=== PATIENT | male | born 1955 | race African-American/Black ===

== ENCOUNTER 2018-05-06 22:33 | Emergency (ER) | payer SELFPAY ==
[~2018-05-06] VITALS: Ht 175.3 cm; Wt 84.1 kg
[2018-05-06 23:39] LABS: GLUCOSE,POINT OF CARE 138 MG/DL (70-110)
[2018-05-06] MEDS ORDERED: ATOR10TA84 PO (23:40)
[2018-05-06] MEDS ORDERED: METF-445 PO (23:40)
[2018-05-06] MEDS ORDERED: LISI-662 PO (23:40)
[2018-05-06 23:44] LABS: BASOPHILS % (AUTO) 0.9 % (0.0-2.0); EOSINOPHILS % (AUTO) 3.1 % (1.0-6.0); HEMATOCRIT 42.1 % (41-53); LYMPHOCYTES % (AUTO) 21.9 % (22.0-44.0); MEAN CORPUSCULAR HGB CONC 30.9 G/dL (31.0-37.0); MEAN CORPUSCULAR VOLUME 68 fL (80-100); MONOCYTES # (AUTO) 0.4 K/uL (0.1-1.0); MONOCYTES % (AUTO) 8.4 % (2.0-9.0); NEUTROPHILS # (AUTO) 3.1 K/uL (1.8-7.7); NEUTROPHILS % (AUTO) 65.7 % (40.0-70.0); PLATELET COUNT (AUTO) 236 K/uL (150-450); RED BLOOD CELL COUNT(AUTO) 6.17 MIL/uL (4.50-5.90); RED CELL DISTRIBUTION WIDTH 17.8 % (11.5-14.5)
[2018-05-07 00:05] LABS: ANION GAP 14 mmol/L (8-16); CALCIUM, TOTAL 8.9 mg/dL (8.8-10.5); CARBON DIOXIDE 21 mmol/L (22-29); CHLORIDE 104 mmol/L (98-107); CREATININE 1.11 mg/dL (0.60-1.30); GLOMERULAR FILTR. RATE CALC > 60 mL/min (>60); GLUCOSE,RANDOM 134 mg/dL (70-110); POTASSIUM 3.8 mmol/L (3.5-5.1); SODIUM SERUM 139 mmol/L (136-145); UREA NITROGEN, BLOOD 18 mg/dL (7-18)
[2018-05-07 00:19] LABS: B-TYPE NATRIURETIC PEPTIDE 78 pg/mL (0-100)
[2018-05-07 00:29] LABS: ALANINE AMINOTRANSFERASE 10 U/L (12-78); ALBUMIN 3.7 g/dL (3.4-5.0); ALKALINE PHOSPHATASE 72 U/L (46-116); ASPARTATE AMINOTRANSFERASE 16 U/L (15-37); BILIRUBIN,TOTAL 0.3 mg/dL (0.1-1.0); CREATINE KINASE, TOTAL ONLY 155 U/L (39-308); LIPASE 200 U/L (73-393); TOTAL PROTEIN, SERUM 8.1 g/dL (6.4-8.2)
[2018-05-07 01:04] LABS: APPEARANCE,URINE CLEAR (CLEAR); BILIRUBIN,URINE NEGATIVE (NEGATIVE); GLUCOSE, URINE (UA) >=1000 mg/dL (NEGATIVE); KETONES,URINE NEGATIVE (NEGATIVE); LEUKOCYTE ESTERASE ,URINE NEGATIVE (NEGATIVE); NITRATE,URINE NEGATIVE (NEGATIVE); OCCULT BLOOD,URINE NEGATIVE (NEGATIVE); PH,URINE 5.5 (5.0-8.0); PROTEIN,URINE NEGATIVE (NEGATIVE); UROBILINOGEN,URINE 0.2 mg/dL (<=1.0)
[2018-05-07] MEDS ORDERED: KETOROLAC TROMETHAMINE 30 MG/ML VIAL IM ONE (01:15)
[2018-05-07 01:30] LABS: BACTERIA,URINE None Seen /HPF (None Seen); RBC,URINE None Seen /HPF (0-2); SQUAMOUS EPITHELIAL CELL,UR None Seen /LPF (None Seen); WBC,URINE None Seen /HPF (0-5)
[2018-05-07 03:00] VITALS: BP 135/81
== END 2018-05-07 03:33 | disposition home or self-care (01) ==
LOC: EMS 22:35
DX: S46.212A Strain of muscle, fascia and tendon of other parts of biceps, left arm, initial encounter (principal); R07.89 Other chest pain; R06.02 Shortness of breath; E11.9 Type 2 diabetes mellitus without complications; E78.00 Pure hypercholesterolemia, unspecified; I10 Essential (primary) hypertension; Z79.84 Long term (current) use of oral hypoglycemic drugs; Z79.899 Other long term (current) drug therapy; X58.XXXA Exposure to other specified factors, initial encounter; Y93.89 Activity, other specified; Y92.89 Other specified places as the place of occurrence of the external cause; Y99.8 Other external cause status
CPT/HCPCS: 36415; 74022; 80053; 81001; 82550; 82962; 83690; 83880; 84484; 85025; 85379; 93005; 96372; 99285; J1885

== ENCOUNTER 2020-08-27 16:01 | Emergency (ER) | payer MEDICARE, OTHER ==
[~2020-08-27 16:01] MED LIST: ATOR10TA84 PO; LISI-894 PO; METF-445 PO
[2020-08-27] MEDS ORDERED: 0.9% SODIUM CHLORIDE 10 ML SYRINGE IVP ONE (16:02)
[2020-08-27] MEDS ORDERED: SODIUM BICARBONATE [ADULT] 8.4% 50 MEQ/50 ML SYRINGE IVP ONE ×2 (16:02→16:30)
[2020-08-27] MEDS ORDERED: CALCIUM CHLORIDE 100 MG/ML 10 ML SYRINGE IVP ONE (16:02)
[2020-08-27] MEDS ORDERED: EPINEPHrine 1:10,000 [1 MG/10 ML] SYRINGE IVP ONE (16:02)
[2020-08-27] MEDS ORDERED: NOREPINEPHRINE 4 MG/D5%-WATER 250 ML IV PRN (16:30)
[2020-08-27] MEDS ORDERED: SODIUM CHLORIDE 0.9% 2,000 ML IV ONE (16:30)
[2020-08-27 16:41] LABS: MEAN CORPUSCULAR VOLUME 85 fL (80-100); RED BLOOD CELL COUNT(AUTO) 5.39 MIL/uL (4.50-5.90); RED CELL DISTRIBUTION WIDTH 19.4 % (11.5-14.5)
[2020-08-27 17:00] LABS: SALICYLATE < 2.8 mg/dL (2.8-20.0); TROPONIN I 1.11 ng/mL (0.00-0.05)
[2020-08-27 17:08] LABS: D-DIMER 35.2 mg/L FEU (0.00-0.50); INR 1.4 (0.9-1.1); PROTHROMBIN TIME 14.6 SEC (9.4-11.6)
[2020-08-27 17:19] LABS: COVID AG,FIA SOURCE NASOPHARYNGEAL
[2020-08-27 17:19] LABS: B-TYPE NATRIURETIC PEPTIDE 565 pg/mL (0-100)
[2020-08-27 17:26] LABS: HEMOGLOBIN 13.1 g/dL (13.5-17.5)
[2020-08-27 17:28] LABS: ALANINE AMINOTRANSFERASE 162 U/L (12-78); ALBUMIN 2.4 g/dL (3.4-5.0); ALKALINE PHOSPHATASE 85 U/L (46-116); ANION GAP 30 mmol/L (8-16); ASPARTATE AMINOTRANSFERASE 272 U/L (15-37); BILIRUBIN,TOTAL 0.7 mg/dL (0.1-1.0); CALCIUM, TOTAL 8.5 mg/dL (8.8-10.5); CHLORIDE 92 mmol/L (98-107); CREATINE KINASE, TOTAL ONLY 393 U/L (39-308); CREATININE 2.51 mg/dL (0.60-1.30); FERRITIN 1776 ng/mL (26-388); GLOMERULAR FILTR. RATE CALC 31 mL/min (>60); LACTATE DEHYDROGENASE 1228 U/L (85-227); LIPASE 172 U/L (73-393); SODIUM SERUM 131 mmol/L (136-145); TOTAL PROTEIN, SERUM 7.4 g/dL (6.4-8.2); UREA NITROGEN, BLOOD 53 mg/dL (7-18)
[2020-08-27 17:42] LABS: ACETAMINOPHEN < 2 mcg/mL (10-30); CARBON DIOXIDE 9 mmol/L (22-29); GLUCOSE,RANDOM 440 mg/dL (70-110); POTASSIUM 6.3 mmol/L (3.5-5.1)
[2020-08-27 17:43] LABS: LACTIC ACID 23.4 mmol/L (0.4-2.0)
[2020-08-27 18:21] LABS: PLATELET COUNT (AUTO) 41 K/uL (150-450)
[2020-08-27 18:24] LABS: BAND NEUTROPHILS % (MANUAL) 6 % (0-5); LYMPHOCYTES % (MANUAL) 29 % (22-44); MONOCYTES % (MANUAL) 9 % (2-9); MYELOCYTES % 1 % (0-0); REACTIVE LYMPHOCYTES 1 % (0-0); SEGMENTED NEUTROPHILS % 54 % (40-70)
== END 2020-08-27 20:15 ==
LOC: EMS 16:01
DX: U07.1 COVID-19 (principal); I46.9 Cardiac arrest, cause unspecified; E11.9 Type 2 diabetes mellitus without complications; E78.00 Pure hypercholesterolemia, unspecified; I10 Essential (primary) hypertension; Z79.84 Long term (current) use of oral hypoglycemic drugs; Z79.899 Other long term (current) drug therapy
CPT/HCPCS: 31500; 36415; 36680; 80053; 82140; 82550; 82728; 83605; 83615; 83690; 83735; 83880; 84484; 85025; 85379; 85384; 85610; 85730; 87040; 87205; 87426; 92950; 93005; 93306; 99291; 99292; G0480; J0171; J3490 ×2; 51702; 94002; G0481